=== PATIENT | male | born 1940 | race Asian ===

== ENCOUNTER 2017-10-29 11:19 | Inpatient (IN) | payer MEDICARE ==
[~2017-10-29] VITALS: Ht 172.7 cm; Wt 59.0 kg
--- NOTE | 2017-10-29 10:40 | NUR ---
Pt. is highly agitated, striking, combative to staff, insisting to go and threatening to call police and awol risk. Dr. james was notified and order Ativan 1 mg IM and Zyprexa 5 mg IM.
[2017-10-29] MEDS ORDERED: MAGNESIUM HYDROXIDE 30 ML UDC PO PRN (11:30)
[2017-10-29] MEDS ORDERED: ACETAMINOPHEN 325 MG TABLET PO PRN (11:30)
[2017-10-29] MEDS ORDERED: MAG HYDROX/AL HYDROX/SIMETH 30 ML UDC PO PRN (11:30)
[2017-10-29] MEDS ORDERED: RISP0.253 PO (11:37)
[2017-10-29] MEDS ORDERED: LORAZEPAM INJ 2 MG/ML VIAL IM STA (11:39)
[2017-10-29] MEDS ORDERED: OLANZAPINE 10 MG VIAL IM STA (11:39)
[2017-10-29 13:48] VITALS: BP 153/88
[2017-10-29 16:18] VITALS: BP 116/91
--- NOTE | 2017-10-29 17:05 | NUR ---
ADMITTED A 76 YEARS OLD MALE ON 5150 FOR GD. PT. HAS BEEN DECOMPENSATING OVER THE LAST MONTH AND HAS BEEN INCREASINGLY CONFUSED AND FORGETFUL AND UNABLE TO CARE FOR HIMSELF. PT. HAS BEEN LEAVING THE FACILITY AND GETTING LOST AND STAFF CAN NOT MANAGE HIM. PT. ARRIVED THE UNIT VIA A WHEELCHAIR AND WHEELED BY ER STAFF. DR. DUBOSE WAS NOTIFIED ABOUT THE ADMISSION AND WITH WITH ORDERS AND DR. MURPHY MADE AWARE OF THE ADMISSION. PT. IS CONFUSED, DISORGANIZED AND UNCOOPERATIVE ON THE ADMISSION PROCESS. PT. REFUSED TO SIGNED THE ADMISSION PAPERS, REFUSED SKIN ASSESSMENT AND SAYING " I WANT TO GO". PT. IS POOR HISTORIAN AND REFUSED TO ANSWER QUESTIONS BEING ASKED. CALLED HIS FRIEND DOROTHEA WORRELL AND SOME INFORMATIONS TAKEN. PT. REFUSED SKIN ASSESSMENT AND SKIN BRUISE NOTED ON BOTH FOREARMS AND HANDS. WILL CONTINUE TO MONITOR FOR SAFETY.
[2017-10-29 20:00] VITALS: BP 120/68
[2017-10-29] MEDS: TEMAZEPAM 7.5 MG CAPSULE PO PRN (20:47)
--- NOTE | 2017-10-29 20:49 | NUR ---
PATIENT PACING AROUND THE UNIT, CONFUSED, REFUSED TO GO TO BED. CONFUSED. CALM, COOPERATIVE, TOOK TEMAZEPAM 7.5 MG CAP 1 PO GIVEN.
[2017-10-30] MEDS: LORAZEPAM 0.5 MG TABLET PO PRN ×2 (02:19→09:09)
--- NOTE | 2017-10-30 02:20 | NUR ---
AWAKE, ANXIOUS, ATIVAN 0.5 MG TAB 1 PO GIVEN.
--- NOTE | 2017-10-30 06:46 | NUR ---
AT AROUND 0630, PARESH LEUNG REPORTED HE SAW PATIENT SITTING ON THE FLOOR. WHEN PATIENT WAS ASKED, HE STATED HE FELL ON THE FLOOR. PHYSICAL ASSESSMENT DONE, PATIENT WAS ABLE TO STAND UP WITH ASSISTANCE BACK TO HIS BED. NO NEW SKIN DISCOLORATION, BRUISES NOTED, NO SWELLING, NO NEW OPEN AREA. PATIENT DENIES ANY PAIN AT THIS TIME. ROM SATISFACTORY, ABLE TO MOVE BOTH LEGS AND ARMS WITHOUT DIFFICULTY. RN THIRD OFFICER PEE PEPPER WAS NOTIFIED, RELATIVE GM RICHDileep WAS NOTIFIED, NO ANSWER, , LEFT A MESSAGE. CALLED DR. DUBOSE ABOUT THE INCIDENT, MESSAGE LEFT ON HIS ANSWERING MACHINE.
[2017-10-30 08:38] VITALS: BP 139/76
--- NOTE | 2017-10-30 08:53 | NUR ---
Awaiting call back from , re: fall incident at around 0630am today.
[2017-10-30 09:07] LABS: ALANINE AMINOTRANSFERASE 33 U/L (12-78); ALBUMIN 3.1 g/dL (3.4-5.0); ALKALINE PHOSPHATASE 68 U/L (46-116); ASPARTATE AMINOTRANSFERASE 25 U/L (15-37); BILIRUBIN,TOTAL 0.6 mg/dL (0.2-1.0); CALCIUM, SERUM 9.4 mg/dL (8.5-10.1); CARBON DIOXIDE 29 mmol/L (21-32); CHLORIDE 105 mmol/L (98-107); GLUCOSE 84 mg/dL (74-106); POTASSIUM 3.7 mmol/L (3.5-5.1); SODIUM SERUM 142 mmol/L (136-145); TOTAL PROTEIN, SERUM 6.4 g/dL (6.4-8.2); UREA NITROGEN, BLOOD 18 mg/dL (7-18)
--- NOTE | 2017-10-30 09:09 | NUR ---
ROM-VZ-TIVUN: GAVE ATIVAN 0.5 MG PO DUE TO SEVERE ANXIETY UPON PT REQUEST AND WILL CONTINUE TO MONITOR FOR EFFECTIVENESS OF MEDICATION
--- NOTE | 2017-10-30 10:29 | NUR ---
WOUND CARE CONSULT: PER PRUDENCE VERA NP, SHE WILL FOLLOW PT FOR SKIN ISSUES. CURRENT LISA SCORE IS 20. DEFER TO SURGICAL TEAM.
--- NOTE | 2017-10-30 10:30 | NUR ---
[id number]: NOTIFIED DR. MURPHY THAT PT WAS FOUND ON THE FLOOR DURING THE NIGHTS SHIFT. DR. MURPHY ORDERED STAFF TO CONTINUE TO MONITOR FOR CHANGE IN CONDITIONS.
--- NOTE | 2017-10-30 15:37 | NUR ---
Initial discharge note: Patient cannot return to [facility] due to his grave disability. Friend Sabas Chang [phone] wishes for patient to be placed in a locked facility for dementia patients due to patients lack of insight and judgement and requires close supervision due to safety. SW will help form a safe and proper discharge with the collaboration of the psychiatrist.
--- NOTE | 2017-10-30 16:02 | NUR ---
RN-CO: Suggested to Dr De La Paz if it is ok to place patient with1:[address] De La Paz "go ahead put the order of sitter for safety." ( pt is AWOL RISK, WANDERS FROM ROOM TO ROOM."
[2017-10-30 16:43] VITALS: BP 154/84
[2017-10-30 18:26] LABS: CHOLESTEROL 222 mg/dL (<200); HDL CHOLESTEROL 71 mg/dL (40-60); LDL 143 mg/dL (0-99); TRIGLYCERIDES 69 mg/dL (30-150)
[2017-10-30] MEDS: DIVALPROEX SODIUM 125 MG TABLET.DR PO SCH (19:03)
[2017-10-30 20:00] VITALS: BP 139/88
[2017-10-30] MEDS: risperiDONE 0.25 MG TABLET PO SCH (20:11)
[2017-10-30] MEDS: TEMAZEPAM 7.5 MG CAPSULE PO PRN (20:55)
[2017-10-31 08:00] VITALS: BP 123/61
[2017-10-31] MEDS: risperiDONE 0.25 MG TABLET PO SCH ×2 (08:28→20:49)
[2017-10-31] MEDS: DIVALPROEX SODIUM 125 MG TABLET.DR PO SCH ×3 (08:29→17:17)
[2017-10-31 16:00] VITALS: BP 141/71
[2017-10-31 20:00] VITALS: BP 129/68
[2017-10-31] MEDS: TEMAZEPAM 7.5 MG CAPSULE PO PRN (20:48)
[2017-11-01 08:00] VITALS: BP 115/75
[2017-11-01] MEDS: DIVALPROEX SODIUM 125 MG TABLET.DR PO SCH ×3 (08:46→17:26)
[2017-11-01] MEDS: risperiDONE 0.25 MG TABLET PO SCH ×2 (08:47→21:19)
[2017-11-01 16:17] VITALS: BP 120/63
[2017-11-01 16:45] LABS: BASOPHILS % (AUTO) 0.7 % (0.0-2.0); HEMATOCRIT 35 % (39-51); HEMOGLOBIN 12.2 g/dL (13.5-17.5); LYMPHOCYTES % (AUTO) 35.7 % (20.0-44.0); MEAN CORPUSCULAR HGB CONC 34 g/dl (31.0-36.0); MEAN CORPUSCULAR VOLUME 102 fL (80-96); MONOCYTES # (AUTO) 0.5 /CMM (0.1-1.30); NEUTROPHILS # (AUTO) 2.9 /CMM (1.8-8.9); NEUTROPHILS % (AUTO) 50.6 % (43.0-81.0); PLATELET COUNT (AUTO) 239 /CMM (150-450); RDW COEFFICIENT OF VARIATION 13.6 (11.5-15.0); RED BLOOD CELL COUNT(AUTO) 3.46 MIL/uL (4.5-6.0); WHITE BLOOD COUNT (AUTO) 5.7 K/uL (4.3-11.0)
[2017-11-01 20:15] VITALS: BP 131/80
[2017-11-02 08:00] VITALS: BP 148/85
[2017-11-02] MEDS: risperiDONE 0.25 MG TABLET PO SCH ×2 (08:26→20:33)
[2017-11-02] MEDS: DIVALPROEX SODIUM 125 MG TABLET.DR PO SCH ×3 (08:26→16:20)
--- NOTE | 2017-11-02 15:29 | NUR ---
APOLONIA contacted [facility] Address: [address], [place] [address] . APOLONIA spoke with Erlinda who confirmed that patient cannot return to facility due to his aggressive behavior and running away from the facility more than five times in less than a week. Erlinda stated that patients friend Sabas Chang discharged pt from facility on 10/28/17 stating pt needs to be placed in a locked facility.
[2017-11-02 16:00] VITALS: BP 146/73
[2017-11-02 19:51] VITALS: BP 148/89
[2017-11-03 08:00] VITALS: BP 122/80
[2017-11-03] MEDS: risperiDONE 0.25 MG TABLET PO SCH ×2 (08:46→21:14)
[2017-11-03] MEDS: DIVALPROEX SODIUM 125 MG TABLET.DR PO SCH ×3 (08:46→17:05)
[2017-11-03 16:00] VITALS: BP 120/78
[2017-11-03 20:13] VITALS: BP 104/56
[2017-11-03] MEDS: TEMAZEPAM 7.5 MG CAPSULE PO PRN (22:15)
[2017-11-04 08:00] VITALS: BP 122/70
[2017-11-04] MEDS: risperiDONE 0.25 MG TABLET PO SCH ×2 (09:31→21:36)
[2017-11-04] MEDS: DIVALPROEX SODIUM 125 MG TABLET.DR PO SCH ×3 (09:31→16:28)
--- NOTE | 2017-11-04 12:33 | NUR ---
APOLONIA faxed referral to [facility] [phone]. APOLONIA will follow up with [facility] as patients discharge date is for 11/06/17.
[2017-11-04 15:59] VITALS: BP 112/75
--- NOTE | 2017-11-04 19:30 | NUR ---
GPS RN NOTE, RECEIVED PATIENT AWAKE AND IN BED, PATIENT HAS NO S/S OR COMPLAINTS OF PAIN AT THIS TIME. PATIENT IS DISPLAYING NO S/S OF APPARENT DISTRESS AT THIS TIME. PATIENT BREATHING IS UNLABORED WITH EQUAL RISE AND FALL OF THE CHEST. PATIENT IS ALERT AND ORIENTED X 1 ON ROOM AIR WITH A SPO2 OF 95%. PATIENT IS COMPLIANT WITH MEDICATION, ANXIOUS AT TIMES, CONFUSED AT TIMES, COOPERATIVE, AND NEEDS REORIENTATION. PATIENT DENIES SUICIDE IDEATIONS AND HOMICIDAL IDEATIONS AT THIS TIME. PATIENT ASSISTED WITH TURNING AND REPOSITIONING Q2HR AND PRN FOR COMFORT AND CIRCULATION. PATIENT HAS NO NEEDS AT THIS TIME. PATIENT EDUCATED ON THE USE OF THE CALL [place]. PATIENT SIDE RAILS ARE UP X 2, BED IS LOCKED AND LOW, AND I WILL CONTINUE TO MONITOR THIS PATIENT Q 15 MIN WITH THE HELP OF STAFF.
[2017-11-04 20:00] VITALS: BP 154/77
[2017-11-05 08:03] VITALS: BP 122/70
[2017-11-05] MEDS: risperiDONE 0.25 MG TABLET PO SCH ×2 (08:18→20:20)
[2017-11-05] MEDS: DIVALPROEX SODIUM 125 MG TABLET.DR PO SCH ×3 (08:18→16:45)
--- NOTE | 2017-11-05 10:58 | NUR ---
APOLONIA faxed referral to [facility] ( / ) [address] [place] [address]. APOLONIA will follow-up.
--- NOTE | 2017-11-05 15:14 | NUR ---
SW faxed referral to [facility] [phone]. SW will follow up for a referral status.
[2017-11-05 16:32] VITALS: BP 139/78
[2017-11-05 20:00] VITALS: BP 107/62
[2017-11-05] MEDS: TEMAZEPAM 7.5 MG CAPSULE PO PRN (20:21)
--- NOTE | 2017-11-05 20:22 | NUR ---
RESTORIL 7.5 MG CAP 1 PO GIVEN FOR SLEEP.
[2017-11-06] MEDS: DIVALPROEX SODIUM 125 MG TABLET.DR PO SCH ×3 (08:47→16:27)
[2017-11-06] MEDS: risperiDONE 0.25 MG TABLET PO SCH (08:47)
[2017-11-06 09:37] VITALS: BP 108/86
--- NOTE | 2017-11-06 12:25 | NUR ---
Discharge Note: Pt being discharged via ambulance at 4:00pm to [facility] Address: [address] [place] [address] . Pt's next of Kin Sabas Chang [phone] was notified of discharge and was agreeable to discharge plan. Pts mood and affect was calm and appeared content with discharge plan nodding his head yes and smiling. Pt denied homicidal/suicidal ideations. For smoking cessation, patient was referred to [employer] 800-LUNGUSA and [employer] [phone] and [facility]. Facilitated info to IDT team who are in agreement with discharge arrangement. The multidisciplinary exitcare form was done, printed, signed, and given to the patient. Online Marketing Coordinator: Dr. Doss Address: [address], [place] [address] Psychiatrist: Dr. De La Paz Address: [address] [address], [place] [address] Phone:
--- NOTE | 2017-11-06 16:57 | NUR ---
[employer] SENIOR [employer]UT[employer] ARCHITECT NOTE: PATIENT DISCHARGE TO [facility] [address] [facility] [id number] PATIENT IN STABLE CONDITION NO S/S DISTRESS NOTED . PT AMBULATORY SELF CARE A/O X2, COMPLIANT WITH MEDICATIONS AND TX . DR DUBOSE AND DR MURPHY AWARE WITH ORDERS TO CONTINUE MEDICATIONS . PATIENT DENIES SI/HI . VSS . SKIN CHECKED PICTURES PLACED IN THE CHART. ALL BELONGINGS, AND VALUABLES RETURNED TO PT, REPORT GIVEN TO RN IN THE FACILITY.
== END 2017-11-06 17:00 | DRG 885 ==
LOC: GPS 11:19
PROVIDERS: ADMIT Psychiatry & Neurology Psychiatry; ATTEND Internal Medicine
DX: F23 Brief psychotic disorder (principal); F03.91 Unspecified dementia, unspecified severity, with behavioral disturbance; F41.9 Anxiety disorder, unspecified; F32.9 Major depressive disorder, single episode, unspecified; S81.812A Laceration without foreign body, left lower leg, initial encounter; S61.412A Laceration without foreign body of left hand, initial encounter
CPT/HCPCS: 36415; 80053-TC; 80061-TC; 85025-TC; 87081-TC; A6402; J2060; J3490; J7050